=== PATIENT | male | born 1990 | race Caucasian/White ===

== ENCOUNTER 2020-06-06 00:55 | Emergency (ER) | payer SELFPAY ==
[~2020-06-06] VITALS: Ht 162.6 cm; Wt 78.0 kg
[2020-06-06 00:56] VITALS: BP 119/67
[2020-06-06] MEDS ORDERED: DIPH,PERTUSS(ACELL),TET VAC/PF 0.5 ML IM-VACC ONE ×2 (01:00→01:07)
[2020-06-06] MEDS ORDERED: LIDOCAINE 1%-EPI 1:100K, 20ML INFIL ONE (01:00)
[2020-06-06] MEDS ORDERED: LIDOCAINE 1%-EPI 1:100K, 20ML ONE (01:07)
--- NOTE | 2020-06-06 01:23 | NUR ---
pt refused CT.
[2020-06-06] MEDS ORDERED: NEOSPORIN OINT. PKT 1 PACKET ONE (02:07)
--- NOTE | 2020-06-06 02:17 | NUR ---
PT WOUND CLEANED. CHIN SUTURED BY ERP. STERI STRIP APPLIED TO LEFT CHEEK. NEOSPORIN APPLIED TO WOUNDS. PT TOLERATED WELL.
== END 2020-06-06 02:18 | disposition home or self-care (01) ==
LOC: ED 02:15
DX: S01.412A Laceration without foreign body of left cheek and temporomandibular area, initial encounter (principal); S01.81XA Laceration without foreign body of other part of head, initial encounter; F10.129 Alcohol abuse with intoxication, unspecified; F17.200 Nicotine dependence, unspecified, uncomplicated; W01.0XXA Fall on same level from slipping, tripping and stumbling without subsequent striking against object, initial encounter; Y93.01 Activity, walking, marching and hiking; Y92.89 Other specified places as the place of occurrence of the external cause; Y99.8 Other external cause status; Y90.9 Presence of alcohol in blood, level not specified
CPT/HCPCS: 12011; 99283